=== PATIENT | male | born 1955 | race Caucasian/White ===

== ENCOUNTER 2017-12-22 06:54 | Emergency (ER) | payer SELFPAY ==
[~2017-12-22] VITALS: Ht 175.3 cm; Wt 104.0 kg
[~2017-12-22 06:54] MED LIST: CIPROFLOXACN500 MG PO; NO MEDS; ROBITUSSIN AC10 ML PO; STERAPRED5 MG PO; [UNRECOGNIZED DRUG - REMARK]
[2017-12-22 07:57] LABS: INFLUENZA A NONE DETECTED (NONE DETECT); INFLUENZA B NONE DETECTED (NONE DETECT)
[2017-12-22 08:11] VITALS: BP 148/77
[2017-12-22] MEDS ORDERED: MEDDOSEPAK PO (08:19)
[2017-12-22] MEDS ORDERED: VENTOLIN HFA IN (08:19)
[2017-12-22] MEDS ORDERED: ZITHROMAX250 MG PO (08:19)
== END 2017-12-22 08:36 | disposition home or self-care (01) | DRG 203 ==
LOC: ED 06:54
PROVIDERS: Emergency Medicine
DX: J40 Bronchitis, not specified as acute or chronic (principal)